=== PATIENT | male | born 2000 | race Two or more races ===

== ENCOUNTER 2022-02-26 16:53 | Emergency (ER) | payer MEDICAID, OTHER ==
[~2022-02-26] VITALS: Ht 175.3 cm; Wt 136.1 kg
[2022-02-27] MEDS ORDERED: ACETAMINOPHEN 325 MG TAB PO ONE (00:45)
[2022-02-27] MEDS ORDERED: KETOROLAC TROMETH 30 MG/ML 1ML VIAL IM ONE (00:45)
[2022-02-27] MEDS ORDERED: SODIUM CHLORIDE 0.9% 1,000 ML IV ONE (03:30)
[2022-02-27] MEDS ORDERED: METOCLOPRAMIDE HCL 5MG/ml INJ 2ml VIAL IV ONE (03:30)
[2022-02-27 08:00] VITALS: BP 163/95
== END 2022-02-27 08:01 | disposition home or self-care (01) ==
LOC: ER 16:53
DX: G44.209 Tension-type headache, unspecified, not intractable (principal)
CPT/HCPCS: 70450; 96361; 96372; 96374; 99284; J1885; J2765; J7030